=== PATIENT | male | born 1990 | race African-American/Black ===

== ENCOUNTER 2024-08-09 03:13 | Inpatient (IN) | payer SELFPAY ==
[2024-08-09 03:41] VITALS: BMI 51.6
[2024-08-09 05:11] LABS: POTASSIUM 5.4 mmol/L (3.5-5.1)
[2024-08-09 05:13] LABS: ALBUMIN 2.6 g/dl (3.4-5.0); BLOOD UREA NITROGEN 15.5 mg/dL (7-18); CALCIUM 8.7 mg/dL (8.5-10.1); MAGNESIUM 1.6 mg/dL (1.8-2.4)
[2024-08-09 05:18] LABS: BILIRUBIN,TOTAL 0.9 mg/dL (0.2-1); TOT PROT 7.6 g/dl (6.4-8.2)
[2024-08-09 05:21] LABS: N-TERMINAL BNP 2411.6 pg/ml (5-125)
[2024-08-09 05:29] LABS: BASO % 1.2 % (0-2.0); HEMATOCRIT 35.6 % (35.4-49); HEMOGLOBIN 11.3 GM/dL (11.7-16.9); LYMPH % 31.5 % (8-40); MCH 25.5 pg (25.7-33.7); MCHC 31.8 g/dl (32.0-35.9); MEAN PLT VOLUME 8.8 fl (7.5-11.1); MONO % 10.6 % (3.8-10.2); NEUT % 53.7 % (42.8-82.8); PLATELET COUNT 252 10^3/uL (134-434); RBC 4.46 M/mm3 (4.00-5.60); RDW 16.4 % (11.9-15.9); WHITE BLOOD COUNT 5.3 K/mm3 (4.0-10.0)
[2024-08-09] MEDS ORDERED: ACETAMINOPHEN INJECTION 100 ML ONE (06:17)
[2024-08-09] MEDS ORDERED: MAGNESIUM 1GM/D5W - 1 GM/100 ML IVPB IVPB ONE (06:18)
[2024-08-09] MEDS: ACETAMINOPHEN 1000 MG/100 ML BAG IVPB ONE (06:24)
[2024-08-09] MEDS: MAGNESIUM SULF 50% (8.12 MEQ/2 ML-1 GM VIAL) IVPB ONE (06:25)
[2024-08-09] MEDS: SODIUM CHLORIDE 500 ML IV STA (06:25)
[2024-08-09 08:25] LABS: POTASSIUM 3.6 mmol/L (3.5-5.1)
[2024-08-09 08:26] LABS: CALCIUM 8.9 mg/dL (8.5-10.1)
[2024-08-09 08:27] LABS: BLOOD UREA NITROGEN 15.6 mg/dL (7-18)
[2024-08-09] MEDS ORDERED: amLODIPine BESYLATE 10 MG TABLET (FP) ONE (10:38)
[2024-08-09] MEDS: amLODIPine BESYLATE 10 MG TABLET (FP) PO ONE (10:40)
[2024-08-09] MEDS ORDERED: LOSARTAN POTASSIUM 50 MG TABLET ONE (12:07)
[2024-08-09] MEDS ORDERED: hydrALAZINE HCL 25 MG TABLET (FP) ONE (12:07)
[2024-08-09] MEDS ORDERED: INSULIN (LEVEMIR) 100 UNITS/ML UNITS SQ ONE (12:08)
[2024-08-09] MEDS: hydrALAZINE HCL 25 MG TABLET (FP) PO SCH (12:15)
[2024-08-09] MEDS: LOSARTAN POTASSIUM 50 MG TABLET PO SCH (12:15)
[2024-08-09] MEDS: TORSEMIDE 20 MG TABLET (FP) PO SCH (12:16)
[2024-08-09] MEDS: INSULIN (LEVEMIR) 100 UNITS/ML UNITS SQ SCH (12:16)
[2024-08-09] MEDS ORDERED: HEPARIN NA (PORCINE) 5,000 UNITS/ML 1ML VIAL SQ SCH (14:00)
[2024-08-09] MEDS ORDERED: ACETAMINOPHEN 325 MG TABLET (FP) PO PRN (16:04)
[2024-08-09] MEDS ORDERED: INSULIN ASPART SLIDING SCALE (NOVOLOG) 1 VIAL SQ ONE (16:25)
[2024-08-09] MEDS: INSULIN ASPART SLIDING SCALE (NOVOLOG) 1 VIAL SQ SCH (16:53)
[2024-08-09] MEDS: CARVEDILOL 25 MG TABLET (FP) PO SCH (20:35)
[2024-08-09] MEDS: ENOXAPARIN NA (PORCINE) 40 MG/0.4 ML DISP.SYRIN SQ SCH (22:16)
[2024-08-09] MEDS: ATORVASTATIN CA 80 MG TABLET (FP) PO SCH (22:16)
[2024-08-09] MEDS: LABETALOL HCL 20 MG/4 ML VIAL IVPUSH ONE (22:43)
[2024-08-10] MEDS ORDERED: INSULIN (LEVEMIR) 100 UNITS/ML UNITS SQ ONE (06:33)
[2024-08-10] MEDS ORDERED: INSULIN ASPART SLIDING SCALE (NOVOLOG) 1 VIAL SQ ONE (06:33)
[2024-08-10 08:33] LABS: HEMATOCRIT 33.9 % (35.4-49); MCH 25.9 pg (25.7-33.7); MCHC 32.4 g/dl (32.0-35.9); MEAN CELL VOLUME 80.1 fl (80-96); MEAN PLT VOLUME 8.9 fl (7.5-11.1); PLATELET COUNT 238 10^3/uL (134-434); RBC 4.23 M/mm3 (4.00-5.60); RDW 16.7 % (11.9-15.9); WHITE BLOOD COUNT 4.8 K/mm3 (4.0-10.0)
[2024-08-10 08:40] LABS: CALCIUM 8.9 mg/dL (8.5-10.1); POTASSIUM 3.8 mmol/L (3.5-5.1)
[2024-08-10 08:42] LABS: BLOOD UREA NITROGEN 15.2 mg/dL (7-18); MAGNESIUM 1.7 mg/dL (1.8-2.4)
[2024-08-10 08:45] LABS: CREATININE 0.9 mg/dL (0.55-1.3)
[2024-08-10] MEDS: EMPAGLIFLOZIN (JARDIANCE) 10 MG TABLET PO SCH (09:51)
[2024-08-10] MEDS: ASPIRIN COATED 81 MG TABLET.EC PO SCH (09:51)
[2024-08-10] MEDS: KETOROLAC TROMETHAMINE 15 MG/ML VIAL IVPUSH PRN (09:51)
[2024-08-10] MEDS: INSULIN (LEVEMIR) 100 UNITS/ML UNITS SQ SCH (22:36)
[2024-08-11 09:04] LABS: BASO % 0.7 % (0-2.0); HEMOGLOBIN 11.6 GM/dL (11.7-16.9); LYMPH % 36.1 % (8-40); MCHC 34.2 g/dl (32.0-35.9); MEAN PLT VOLUME 8.6 fl (7.5-11.1); NEUT % 50.2 % (42.8-82.8); PLATELET COUNT 247 10^3/uL (134-434); RDW 16.8 % (11.9-15.9); WHITE BLOOD COUNT 4.8 K/mm3 (4.0-10.0)
[2024-08-11 09:31] LABS: CREATININE 0.9 mg/dL (0.55-1.3); PHOSPHOROUS 5.4 mg/dL (2.5-4.9)
[2024-08-11 09:33] LABS: ALBUMIN 2.6 g/dl (3.4-5.0); BLOOD UREA NITROGEN 18.9 mg/dL (7-18); TOT PROT 7.6 g/dl (6.4-8.2)
[2024-08-11 09:34] LABS: CALCIUM 9.2 mg/dL (8.5-10.1); MAGNESIUM 1.8 mg/dL (1.8-2.4)
[2024-08-11 09:41] LABS: BILIRUBIN,TOTAL 1.1 mg/dL (0.2-1)
[2024-08-11] MEDS: ACETAMINOPHEN 325 MG TABLET (FP) PO PRN (12:18)
[2024-08-12 08:23] LABS: BASO % 0.7 % (0-2.0); EOS % 3.8 % (0-4.5); HEMOGLOBIN 11.7 GM/dL (11.7-16.9); LYMPH % 34.2 % (8-40); MCH 26.2 pg (25.7-33.7); MCHC 33.4 g/dl (32.0-35.9); MEAN CELL VOLUME 78.4 fl (80-96); MEAN PLT VOLUME 8.6 fl (7.5-11.1); MONO % 11.3 % (3.8-10.2); PLATELET COUNT 256 10^3/uL (134-434); RBC 4.46 M/mm3 (4.00-5.60); RDW 17.2 % (11.9-15.9); WHITE BLOOD COUNT 4.5 K/mm3 (4.0-10.0)
[2024-08-12 08:56] LABS: POTASSIUM 3.9 mmol/L (3.5-5.1)
[2024-08-12 09:08] LABS: CALCIUM 9.4 mg/dL (8.5-10.1)
[2024-08-12 09:09] LABS: ALBUMIN 2.7 g/dl (3.4-5.0); BLOOD UREA NITROGEN 21.1 mg/dL (7-18); MAGNESIUM 2.1 mg/dL (1.8-2.4)
[2024-08-12 09:11] LABS: CREATININE 0.9 mg/dL (0.55-1.3)
[2024-08-12 09:12] LABS: PHOSPHOROUS 5.8 mg/dL (2.5-4.9)
[2024-08-12 09:13] LABS: BILIRUBIN,TOTAL 0.9 mg/dL (0.2-1); TOT PROT 7.6 g/dl (6.4-8.2)
[2024-08-12] MEDS: CEFAZOLIN SODIUM 2 GM in DEXTROSE 5%-WATER 100 ML IVPB ONE (17:04)
[2024-08-12] MEDS: CEFAZOLIN 2 GM/D5W 2 GM/50 ML ML IVPB SCH (18:16)
[2024-08-13] MEDS: hydrALAZINE HCL 25 MG TABLET (FP) PO SCH (06:18)
[2024-08-13] MEDS: EMPAGLIFLOZIN (JARDIANCE) 10 MG TABLET PO SCH (06:18)
[2024-08-13] MEDS: INSULIN (LEVEMIR) 100 UNITS/ML UNITS SQ SCH (06:19)
[2024-08-13] MEDS: INSULIN ASPART SLIDING SCALE (NOVOLOG) 1 VIAL SQ SCH (06:34)
[2024-08-13 08:37] LABS: HEMATOCRIT 39.1 % (35.4-49); HEMOGLOBIN 12.2 GM/dL (11.7-16.9); MCH 25.2 pg (25.7-33.7); MCHC 31.3 g/dl (32.0-35.9); MEAN CELL VOLUME 80.4 fl (80-96); MEAN PLT VOLUME 8.8 fl (7.5-11.1); PLATELET COUNT 280 10^3/uL (134-434); RBC 4.86 M/mm3 (4.00-5.60); RDW 17.3 % (11.9-15.9); WHITE BLOOD COUNT 4.6 K/mm3 (4.0-10.0)
[2024-08-13 08:47] LABS: POTASSIUM 3.9 mmol/L (3.5-5.1)
[2024-08-13 08:52] LABS: ALBUMIN 2.7 g/dl (3.4-5.0); CALCIUM 9.6 mg/dL (8.5-10.1)
[2024-08-13 08:53] LABS: BLOOD UREA NITROGEN 23.3 mg/dL (7-18); MAGNESIUM 2.3 mg/dL (1.8-2.4)
[2024-08-13 08:55] LABS: PHOSPHOROUS 5.9 mg/dL (2.5-4.9)
[2024-08-13 08:56] LABS: CREATININE 1.1 mg/dL (0.55-1.3)
[2024-08-13 08:57] LABS: BILIRUBIN,TOTAL 0.7 mg/dL (0.2-1); TOT PROT 7.9 g/dl (6.4-8.2)
[2024-08-13] MEDS: LOSARTAN POTASSIUM 50 MG TABLET PO SCH (10:02)
[2024-08-13] MEDS: TORSEMIDE 20 MG TABLET (FP) PO SCH (10:02)
[2024-08-13] MEDS: ASPIRIN COATED 81 MG TABLET.EC PO SCH (10:02)
[2024-08-13] MEDS: CARVEDILOL 25 MG TABLET (FP) PO SCH (10:02)
[2024-08-13] MEDS: ENOXAPARIN NA (PORCINE) 40 MG/0.4 ML DISP.SYRIN SQ SCH (10:03)
[2024-08-13] MEDS: ACETAMINOPHEN 325 MG TABLET (FP) PO PRN (13:45)
[2024-08-13] MEDS: ATORVASTATIN CA 80 MG TABLET (FP) PO SCH (21:31)
[2024-08-14 08:47] LABS: HEMATOCRIT 40.2 % (35.4-49); HEMOGLOBIN 13.2 GM/dL (11.7-16.9); MCHC 32.9 g/dl (32.0-35.9); MEAN CELL VOLUME 79.2 fl (80-96); MEAN PLT VOLUME 8.7 fl (7.5-11.1); PLATELET COUNT 300 10^3/uL (134-434); RBC 5.07 M/mm3 (4.00-5.60); RDW 17.2 % (11.9-15.9); WHITE BLOOD COUNT 5.5 K/mm3 (4.0-10.0)
[2024-08-14 09:05] LABS: POTASSIUM 3.8 mmol/L (3.5-5.1)
[2024-08-14 09:11] LABS: CALCIUM 9.7 mg/dL (8.5-10.1)
[2024-08-14 09:12] LABS: ALBUMIN 2.9 g/dl (3.4-5.0); BLOOD UREA NITROGEN 31.4 mg/dL (7-18)
[2024-08-14 09:15] LABS: CREATININE 1.2 mg/dL (0.55-1.3)
[2024-08-14 09:16] LABS: BILIRUBIN,TOTAL 0.6 mg/dL (0.2-1)
[2024-08-14 09:17] LABS: TOT PROT 8.3 g/dl (6.4-8.2)
[2024-08-14] MEDS: INSULIN (LEVEMIR) 100 UNITS/ML UNITS SQ SCH (21:33)
[2024-08-15 09:37] LABS: HEMATOCRIT 41.5 % (35.4-49); HEMOGLOBIN 13.2 GM/dL (11.7-16.9); MCH 25.6 pg (25.7-33.7); MCHC 31.9 g/dl (32.0-35.9); MEAN CELL VOLUME 80.3 fl (80-96); PLATELET COUNT 300 10^3/uL (134-434); RBC 5.17 M/mm3 (4.00-5.60); RDW 17.1 % (11.9-15.9); WHITE BLOOD COUNT 5.8 K/mm3 (4.0-10.0)
[2024-08-15 10:03] LABS: POTASSIUM 4.1 mmol/L (3.5-5.1)
[2024-08-15 10:06] LABS: CALCIUM 9.9 mg/dL (8.5-10.1)
[2024-08-15 10:07] LABS: BLOOD UREA NITROGEN 35.8 mg/dL (7-18)
[2024-08-15 10:10] LABS: CREATININE 1.3 mg/dL (0.55-1.3)
[2024-08-15 10:12] LABS: BILIRUBIN,TOTAL 0.6 mg/dL (0.2-1); TOT PROT 8.4 g/dl (6.4-8.2)
[2024-08-16 09:30] LABS: HEMATOCRIT 41.2 % (35.4-49); HEMOGLOBIN 13.8 GM/dL (11.7-16.9); MCH 26.5 pg (25.7-33.7); MCHC 33.5 g/dl (32.0-35.9); MEAN CELL VOLUME 79.1 fl (80-96); MEAN PLT VOLUME 8.6 fl (7.5-11.1); PLATELET COUNT 308 10^3/uL (134-434); RBC 5.21 M/mm3 (4.00-5.60); RDW 17.5 % (11.9-15.9); WHITE BLOOD COUNT 5.6 K/mm3 (4.0-10.0)
[2024-08-16 09:55] LABS: POTASSIUM 4.5 mmol/L (3.5-5.1)
[2024-08-16 09:57] LABS: CALCIUM 9.8 mg/dL (8.5-10.1)
[2024-08-16 09:58] LABS: ALBUMIN 3.1 g/dl (3.4-5.0)
[2024-08-16 10:01] LABS: CREATININE 1.2 mg/dL (0.55-1.3)
[2024-08-16 10:02] LABS: BILIRUBIN,TOTAL 0.7 mg/dL (0.2-1)
[2024-08-16 10:03] LABS: TOT PROT 8.8 g/dl (6.4-8.2)
[2024-08-16] MEDS ORDERED: CYCLOBENZAPRINE HCL 10 MG TABLET (FP) PO PRN (15:05)
[2024-08-16] MEDS: CYCLOBENZAPRINE HCL 10 MG TABLET (FP) PO SCH (21:55)
[2024-08-16] MEDS: INSULIN (LEVEMIR) 100 UNITS/ML UNITS SQ SCH (21:57)
[2024-08-17 10:39] VITALS: RESP 18
[2024-08-18 12:57] VITALS: BP 128/67; PULSE 84; TEMP 97.6
== END 2024-08-18 12:59 | disposition home or self-care (01) | DRG 383 ==
LOC: JER 03:13 → JERBED 10:18 → OBSVTOIN 13:40 → J4W 18:34 → J6S 08-12 22:20
PROVIDERS: ADMIT Student in an Organized Health Care Education/Training Program; ATTEND Student in an Organized Health Care Education/Training Program
DX: L03.116 Cellulitis of left lower limb (principal); E78.5 Hyperlipidemia, unspecified; I16.0 Hypertensive urgency; I11.0 Hypertensive heart disease with heart failure; I50.22 Chronic systolic (congestive) heart failure; E11.65 Type 2 diabetes mellitus with hyperglycemia; E66.01 Morbid (severe) obesity due to excess calories; Z68.43 Body mass index [BMI] 50.0-59.9, adult; R59.0 Localized enlarged lymph nodes; M25.462 Effusion, left knee
CPT/HCPCS: 0241U-QW; 36415; 72170-TC-FY; 73552-TC-LT-FY; 73562-TC-LT-FY; 73700-TC-RT; 73719-LT; 80048; 80053; 82085; 82550; 82553; 82962; 83036; 83735; 83880; 84100; 84484; 85025; 85027; 86140; 87040; 87081; 93005; 93010; 93971-TC; 97116-GP; 97161-GP; 99285-25; G0378; J0131